=== PATIENT | female | born 1990 | race Caucasian/White ===

== ENCOUNTER 2020-05-30 17:30 | Outpatient (CLI) | payer OTHER | END 2020-05-30 17:31 | disposition home or self-care (01) | LOC: SLEEPLAB 17:30 | PROVIDERS: ATTEND Family Medicine | DX: G47.33 Obstructive sleep apnea (adult) (pediatric) (principal); R53.83 Other fatigue; R06.83 Snoring; F41.9 Anxiety disorder, unspecified; E66.9 Obesity, unspecified; G47.00 Insomnia, unspecified; F32.9 Major depressive disorder, single episode, unspecified; G47.10 Hypersomnia, unspecified; Z68.41 Body mass index [BMI] 40.0-44.9, adult | CPT/HCPCS: 95801 ==

== ENCOUNTER 2021-02-15 00:06 | Emergency (ER) | payer OTHER, SELFPAY ==
[2021-02-15] MEDS ORDERED: HYDROcodone/Acetaminophen 5/325 mg Tablet ONE (01:29)
== END 2021-02-15 01:35 | disposition home or self-care (01) ==
LOC: ERS 00:06
DX: S93.401A Sprain of unspecified ligament of right ankle, initial encounter (principal); X50.9XXA Other and unspecified overexertion or strenuous movements or postures, initial encounter